=== PATIENT | male | born 1935 | race Caucasian/White ===

== ENCOUNTER → 2016-10-04 | Outpatient (CLI) | payer MEDICARE, OTHER ==
[~2016-10-04] MED LIST: ALPR-475 PO; ASPI-515 PO; ENAL5TAB34 PO; FLUT1DIS3 INH; FURO-93 PO; GABA100C8 PO; HYDR-3144 PO; POTA20TA6 PO; PRED5TAB PO; TOCI80VI IVPB
== END | disposition home or self-care (01) ==
LOC: CFH 15:05
PROVIDERS: ATTEND Internal Medicine Cardiovascular Disease
DX: I34.0 Nonrheumatic mitral (valve) insufficiency (principal); I35.0 Nonrheumatic aortic (valve) stenosis; I35.1 Nonrheumatic aortic (valve) insufficiency; I34.8 Other nonrheumatic mitral valve disorders
CPT/HCPCS: 93306

== ENCOUNTER → 2017-01-26 | Outpatient (CLI) | payer MEDICARE, OTHER ==
[~2017-01-26] MED LIST changes: +CARVEDILOL PO; +GABA-826 PO; -GABA100C8 PO; +TAMS-11 PO; +TRAZ100T15 PO
[2017-01-26 11:06] LABS: ASPARTATE AMINO TRANSFERASE 12 U/L (15-37); BLOOD UREA NITROGEN 23 mg/dL (7-18)
== END | disposition home or self-care (01) ==
LOC: STAR 10:00
PROVIDERS: ATTEND Orthopaedic Surgery
DX: Z01.818 Encounter for other preprocedural examination (principal); R94.31 Abnormal electrocardiogram [ECG] [EKG]; M20.42 Other hammer toe(s) (acquired), left foot
CPT/HCPCS: 36415; 80053; 93005

== ENCOUNTER 2017-02-10 08:16 | Day surgery (SDC) | payer MEDICARE, OTHER ==
[~2017-02-10] VITALS: Ht 170.2 cm; Wt 86.4 kg
[2017-02-10] MEDS ORDERED: LACTATED RINGERS 1,000 ML IV SCH (08:57)
[2017-02-10 09:00] VITALS: BP 160/73
[2017-02-10] MEDS ORDERED: CARVEDILOL PO (09:00)
[2017-02-10] MEDS ORDERED: FENTANYL PF 100 MCG/2ML ONE ×2 (10:00→12:36)
[2017-02-10] MEDS ORDERED: ROPIvacaine/PF 0.5%, 30 ML ONE (10:03)
[2017-02-10] MEDS ORDERED: ONDANSETRON 2MG/ML, 2ML ONE (10:27)
[2017-02-10] MEDS ORDERED: DEXAMETHASONE 4 MG/ML, 5ML ONE (10:27)
[2017-02-10] MEDS ORDERED: PROPOFOL 10 MG/ML, 20ML ONE (10:27)
[2017-02-10] MEDS ORDERED: EPHEDRINE 50 MG/ML, 1ML ONE (10:27)
[2017-02-10] MEDS ORDERED: CEFAZOLIN 1,000 MG ONE (10:27)
[2017-02-10] MEDS ORDERED: hydrALAzine 20 MG/ML, 1ML ONE ×2 (11:33→12:22)
[2017-02-10] MEDS: hydrALAzine 20 MG/ML, 1ML IV PRN ×2 (11:35→12:32)
[2017-02-10] MEDS ORDERED: PROMETHAZINE 25 MG/ML, 1ML IV PRN (12:00)
[2017-02-10] MEDS ORDERED: OXYcodone 5 MG/5 ML ORAL.SOL UDC PO PRN (12:00)
[2017-02-10] MEDS ORDERED: ACETAMINOPHEN 325 MG TABLET PO PRN (12:00)
[2017-02-10] MEDS ORDERED: OXYcodone 5 MG/5 ML ORAL.SOL UDC ONE (12:36)
[2017-02-10] MEDS ORDERED: ACETAMINOPHEN 650 MG/20.3 ML UDC ONE (12:36)
[2017-02-10] MEDS: FENTANYL PF 100 MCG/2ML IV PRN ×2 (12:38→12:51)
== END 2017-02-10 14:30 ==
LOC: OUT 08:16
PROVIDERS: ATTEND Orthopaedic Surgery
DX: M77.42 Metatarsalgia, left foot (principal); M24.575 Contracture, left foot; M20.42 Other hammer toe(s) (acquired), left foot
CPT/HCPCS: 28234; 28285; C1713; J0360; J0690; J1100; J2405; J2704; J2795; J3010; J7120

== ENCOUNTER 2017-02-16 09:46 | Day surgery (SDC) | payer MEDICARE, OTHER ==
[2017-02-08 10:26] VITALS: BP 122/60
[~2017-02-16] VITALS: Ht 170.2 cm; Wt 83.0 kg
[~2017-02-16 09:46] MED LIST changes: +BUPIVACAINE/PF 0.5% ONE; +EPINEPHRINE 1 MG/ML, 1ML ONE; +LIDOCAINE/PF 1%, 30ML ONE
[2017-02-16] MEDS ORDERED: LACTATED RINGERS 1,000 ML IV SCH (10:14)
[2017-02-16 10:15] VITALS: BP 122/60
[2017-02-16] MEDS ORDERED: MIDAZOLAM 1 MG/ML, 2ML ONE (10:34)
[2017-02-16] MEDS ORDERED: FENTANYL PF 100 MCG/2ML ONE (10:34)
[2017-02-16] MEDS ORDERED: HYDROcodone/APAP 10/325 MG TABLET PO PRN (11:00)
[2017-02-16] MEDS ORDERED: SUCCINYLCHOLINE 20 MG/ML, 10ML ONE (11:12)
[2017-02-16] MEDS ORDERED: PROPOFOL 10 MG/ML, 20ML ONE (11:12)
[2017-02-16] MEDS ORDERED: CEFAZOLIN 1,000 MG ONE (11:12)
[2017-02-16] MEDS ORDERED: DEXAMETHASONE 4 MG/ML, 5ML ONE (11:12)
[2017-02-16] MEDS ORDERED: EPHEDRINE 50 MG/ML, 1ML ONE (11:12)
[2017-02-16] MEDS ORDERED: ONDANSETRON 2MG/ML, 2ML ONE (11:12)
[2017-02-16] MEDS ORDERED: GLYCOPYRROLATE 0.2MG/1ML ONE (11:12)
[2017-02-16] MEDS ORDERED: BUPIVACAINE/PF-EPI 0.5% 1:200K INFIL ONE (11:38)
[2017-02-16] MEDS ORDERED: OXYcodone 5 MG/5 ML ORAL.SOL UDC PO PRN (12:00)
[2017-02-16] MEDS ORDERED: LABETALOL 5MG/ML, 20ML IV PRN (12:00)
[2017-02-16] MEDS ORDERED: ACETAMINOPHEN 325 MG TABLET PO PRN (12:00)
[2017-02-16] MEDS ORDERED: HYDROmorphone 1 MG/ML, 1ML IV PRN (12:00)
[2017-02-16] MEDS ORDERED: ALBUTEROL/IPRATROPIUM 2.5MG/0.5MG, 3 ML NPPB PRN (12:00)
[2017-02-16] MEDS ORDERED: FENTANYL PF 100 MCG/2ML IV PRN (12:00)
[2017-02-16] MEDS ORDERED: hydrALAzine 20 MG/ML, 1ML IV PRN (12:00)
[2017-02-16] MEDS ORDERED: MIDAZOLAM 1 MG/ML, 2ML IV PRN (12:00)
[2017-02-16] MEDS ORDERED: ONDANSETRON 2MG/ML, 2ML IVPush PRN (12:00)
[2017-02-16] MEDS ORDERED: PROMETHAZINE 25 MG/ML, 1ML IV PRN (12:00)
[2017-02-16] MEDS ORDERED: MEPERIDINE/PF 25MG/0.5ML IVPush PRN (12:00)
[2017-02-16] MEDS ORDERED: ACETAMINOPHEN 650 MG/20.3 ML UDC ONE (13:38)
[2017-02-16] MEDS ORDERED: OXYcodone 5 MG/5 ML ORAL.SOL UDC ONE (13:39)
[2017-02-16] MEDS ORDERED: TRAZODONE 100MG TABLET PO SCH (21:00)
[2017-02-16] MEDS ORDERED: TEMPLATE NON-FORMULARY MED. (Fluticasone/Salmeterol** (Advair 250-50 Diskus**) 1 PUFF) INH SCH (21:00)
[2017-02-17] MEDS ORDERED: ASPIRIN 81 MG TABLET EC PO SCH (09:00)
[2017-02-17] MEDS ORDERED: TAMSULOSIN 0.4 MG CAP.ER.24H PO SCH (09:00)
[2017-02-17] MEDS ORDERED: ENALAPRIL 5MG TABLET PO SCH (09:00)
== END 2017-02-16 15:15 ==
LOC: OUT 09:46
PROVIDERS: ATTEND Orthopaedic Surgery
DX: S46.112A Strain of muscle, fascia and tendon of long head of biceps, left arm, initial encounter (principal); S43.432A Superior glenoid labrum lesion of left shoulder, initial encounter; M75.42 Impingement syndrome of left shoulder; M19.012 Primary osteoarthritis, left shoulder; M94.212 Chondromalacia, left shoulder; M65.812 Other synovitis and tenosynovitis, left shoulder; I10 Essential (primary) hypertension; J44.9 Chronic obstructive pulmonary disease, unspecified; X58.XXXA Exposure to other specified factors, initial encounter; Y93.89 Activity, other specified; Y92.89 Other specified places as the place of occurrence of the external cause; Y99.8 Other external cause status; Z87.39 Personal history of other diseases of the musculoskeletal system and connective tissue
CPT/HCPCS: 29822; 29824; 29826; 29827; 29828; C1713; J0171; J0330; J0690; J1100; J2250; J2405; J2704; J3010; J3490; J7120

== ENCOUNTER → 2017-10-25 | Outpatient (CLI) | payer MEDICARE, OTHER ==
[~2017-10-25] MED LIST changes: -BUPIVACAINE/PF 0.5% ONE; -ENAL5TAB34 PO; +ENAL5TAB70 PO; -EPINEPHRINE 1 MG/ML, 1ML ONE; -HYDR-3144 PO; +HYDR-3245 PO; -LIDOCAINE/PF 1%, 30ML ONE
== END | disposition home or self-care (01) ==
LOC: CVU 08:12
PROVIDERS: ATTEND Internal Medicine Cardiovascular Disease
DX: I70.0 Atherosclerosis of aorta (principal); I10 Essential (primary) hypertension; N28.9 Disorder of kidney and ureter, unspecified
CPT/HCPCS: 93975

== ENCOUNTER → 2018-03-29 | Outpatient (CLI) | payer MEDICARE, OTHER ==
[~2018-03-29] MED LIST changes: +TRAZ-137 PO; -TRAZ100T15 PO
== END | disposition home or self-care (01) ==
LOC: CFH 08:09
PROVIDERS: ATTEND Internal Medicine Cardiovascular Disease
DX: I08.0 Rheumatic disorders of both mitral and aortic valves (principal); I11.9 Hypertensive heart disease without heart failure; I42.9 Cardiomyopathy, unspecified; I25.2 Old myocardial infarction; E11.9 Type 2 diabetes mellitus without complications
CPT/HCPCS: 93306

== ENCOUNTER 2018-07-11 11:14 | Emergency (ER) | payer MEDICARE, OTHER ==
[~2018-07-11] VITALS: Ht 170.2 cm; Wt 87.0 kg
--- NOTE | 2018-07-11 11:23 | NUR ---
PT. ARRIVES FROM [facility] WHERE HE WAS RECEIVING AN EPIDURAL FOR CHRONIC NECK PAIN. PT. AWOKE, STATED BY HIM, FEELING DISCONNECTED FROM HIS BODY, NOT ALLOWING HIM TO MOVE HIS HANDS, FEET OR BODY. PT. REPORTS THAT HE FEELS BACK TO NORMAL AT THIS TIME. CMS CHECKS ARE INTACT. PULSES ARE +2 THROUGHOUT. PT.'S 12 LEAD EKG WAS DONE. IV ACCESS WAS ESTABLISHED AT THE FACILITY, [facility]. PT.'S PUPILS ARE EVERARDO. SPEECH IS CLEAR. CP MONITOR IS IN PLACE. PT.'S 12 LEAD EKG WAS DONE. REPORT TO BRIGITTE LERNER.
[2018-07-11 11:51] LABS: BASOPHILS # (AUTO) 0.01 x10^3/uL (0-0.1); BASOPHILS % (AUTO) 0 % (0-1); EOSINOPHILS # (AUTO) 0.09 x10^3/uL (0-0.4); EOSINOPHILS % (AUTO) 1 % (1-7); LYMPHOCYTES % (AUTO) 10 % (22-44); MD NO; MEAN CORPUSCULAR HEMOGLOBIN 33.1 pg (27.5-34.5); MEAN CORPUSCULAR HGB CONC 34.2 g/dL (33.2-36.2); MEAN CORPUSCULAR VOLUME 96.6 fL (81-97); MEAN PLATELET VOLUME 8.1 fL (7.4-10.4); MONOCYTES # (AUTO) 0.12 x10^3/uL (0.2-0.8); MONOCYTES % (AUTO) 2 % (2-9); NEUTROPHILS # (AUTO) 5.95 x10^3/uL (1.8-6.8); NEUTROPHILS % (AUTO) 87 % (42-75); PLATELET COUNT 186 x10^3/uL (130-400); RED BLOOD COUNT 4.98 x10^6/uL (4.38-5.82); RED CELL DISTRIBUTION WIDTH 13.4 % (9.4-14.8)
--- NOTE | 2018-07-11 11:57 | NUR ---
pt upright on gurney awake & comfortable, responds approp to staff, NAD, comfort measures provided, call light within reach.
[2018-07-11 12:01] LABS: ALBUMIN 3.5 g/dL (3.4-5.0); CALCIUM 8.7 mg/dL (8.5-10.1); CHLORIDE 107 mmol/L (98-107); CREATININE 1.25 mg/dL (0.7-1.3)
[2018-07-11 12:23] LABS: ANION GAP 3 mmol/L (5-15)
--- NOTE | 2018-07-11 13:07 | NUR ---
pt upright on gurney with eyes closed, responds approp to staff, NAD, comfort measures provided, call light within reach.
--- NOTE | 2018-07-11 13:34 | NUR ---
LUNCH RN: PT TO MRI AFTER MRI SCREENING FORM BEING COMPLETED. MRI INFORMED THAT PT HAS HARDWARE IN LEFT FOOT.
--- NOTE | 2018-07-11 14:58 | NUR ---
pt remains upright on gurney awake & comfortable, responds approp to staff, NAD, comfort measures provided, visitors at BS, call light within reach.
--- NOTE | 2018-07-11 16:05 | NUR ---
pt laying on gurney awake & comfortable, responds approp to staff, NAD, comfort measures provided, visitors at BS, call light within reach.
--- NOTE | 2018-07-11 16:31 | NUR ---
ERP at BS
[2018-07-11 17:09] VITALS: BP 149/94
--- NOTE | 2018-07-11 17:09 | NUR ---
Patient given discharge instructions and they have confirmed that they understand the instructions. Patient ambulatory with steady gait.
== END 2018-07-11 17:11 | disposition home or self-care (01) ==
LOC: ED 14:16
DX: R55 Syncope and collapse (principal); G97.1 Other reaction to spinal and lumbar puncture
CPT/HCPCS: 36415; 70450; 70551; 72141; 80048; 82040; 85025; 93005; 99284

== ENCOUNTER → 2020-10-01 | Outpatient (CLI) | payer MEDICARE, OTHER ==
[~2020-10-01] MED LIST changes: -ALPR-475 PO; +ALPR0.5T7 PO; -ASPI-515 PO; +ASPI-963 PO; -HYDR-3245 PO; +HYDR1TAB53 PO; -TRAZ-137 PO; +TRAZ-175 PO
== END | disposition home or self-care (01) ==
LOC: CFH 11:47
PROVIDERS: ATTEND Internal Medicine Cardiovascular Disease
DX: I08.3 Combined rheumatic disorders of mitral, aortic and tricuspid valves (principal); I42.0 Dilated cardiomyopathy; I48.91 Unspecified atrial fibrillation; I49.3 Ventricular premature depolarization; R60.9 Edema, unspecified; I10 Essential (primary) hypertension; E78.5 Hyperlipidemia, unspecified
CPT/HCPCS: 93306; 93356

== ENCOUNTER → 2020-11-27 | Outpatient (CLI) | payer MEDICARE, OTHER | END | disposition home or self-care (01) | LOC: RAD 08:37 | PROVIDERS: ATTEND Family Medicine | DX: K76.0 Fatty (change of) liver, not elsewhere classified (principal); K80.20 Calculus of gallbladder without cholecystitis without obstruction; K59.00 Constipation, unspecified | CPT/HCPCS: 76700 ==

== ENCOUNTER 2020-12-23 13:44 | Day surgery (SDC) | payer MEDICARE, OTHER ==
[~2020-12-23] VITALS: Ht 170.2 cm; Wt 91.8 kg
[~2020-12-23 13:44] MED LIST changes: +BUPIVACAINE/PF 0.5% ONE
[2020-12-23] MEDS ORDERED: FENTANYL PF 250 MCG/5ML ONE (14:18)
[2020-12-23] MEDS ORDERED: NEOSTIGMINE 1 MG/ML, 10ML ONE (14:19)
[2020-12-23] MEDS ORDERED: CEFOTETAN 2 GM ONE (14:19)
[2020-12-23] MEDS ORDERED: PROPOFOL 10 MG/ML, 20ML ONE (14:19)
[2020-12-23] MEDS ORDERED: ROCURONIUM 10MG/ML,5ML ONE (14:19)
[2020-12-23] MEDS ORDERED: GLYCOPYRROLATE 0.2MG/1ML, 5ML ONE (14:19)
[2020-12-23] MEDS ORDERED: ELIQUIS PO (14:25)
[2020-12-23 14:26] VITALS: BP 134/73
[2020-12-23] MEDS ORDERED: INDOCYANINE GREEN 25 MG VIAL IV ONE (14:30)
[2020-12-23] MEDS ORDERED: LACTATED RINGERS 1,000 ML IV SCH (14:30)
[2020-12-23] MEDS ORDERED: CHLORHEXIDINE 15 ML UDC PO ONE (14:30)
[2020-12-23] MEDS ORDERED: INDOCYANINE GREEN 25 MG VIAL ONE (14:35)
[2020-12-23 14:54] LABS: ALANINE AMINOTRANSFERASE 24 U/L (12-78); ANION GAP 6 mmol/L (5-15); CALCIUM 8.6 mg/dL (8.5-10.1); CHLORIDE 109 mmol/L (98-107)
[2020-12-23 14:56] LABS: ALKALINE PHOSPHATASE 43 U/L (45-117); BILIRUBIN,TOTAL 1.9 mg/dL (0.2-1.0); TOTAL PROTEIN 7.1 g/dL (6.4-8.2)
[2020-12-23] MEDS ORDERED: OXYC5TAB98 PO (14:58)
[2020-12-23] MEDS ORDERED: MEPERIDINE/PF 25MG/0.5ML IVPush PRN (15:30)
[2020-12-23] MEDS ORDERED: HYDROmorphone 1 MG/ML, 1ML INJ IVPush PRN (15:30)
[2020-12-23] MEDS ORDERED: FENTANYL PF 100 MCG/2ML IV PRN (15:30)
[2020-12-23] MEDS ORDERED: ACETAMINOPHEN 325 MG TABLET PO PRN (15:30)
[2020-12-23] MEDS ORDERED: LABETALOL 5MG/ML, 20ML IV PRN (15:30)
[2020-12-23] MEDS ORDERED: ONDANSETRON 2MG/ML, 2ML IVPush PRN (15:30)
[2020-12-23] MEDS ORDERED: hydrALAzine 20 MG/ML, 1ML IV PRN (15:30)
[2020-12-23] MEDS ORDERED: OXYcodone 5 MG/5 ML ORAL.SOL UDC PO PRN (15:30)
[2020-12-23] MEDS ORDERED: morphine SULFATE 10 MG/ML, 1ML IVPush PRN (15:30)
[2020-12-23] MEDS ORDERED: EPINEPHRINE 1 MG/ML, 1ML INFIL ONE (15:51)
[2020-12-23] MEDS ORDERED: hydrALAzine 20 MG/ML, 1ML ONE (16:33)
[2020-12-23] MEDS ORDERED: ACETAMINOPHEN 650 MG/20.3 ML UDC ONE (16:39)
[2020-12-23] MEDS ORDERED: OXYcodone 5 MG/5 ML ORAL.SOL UDC ONE (16:59)
[2020-12-23] MEDS ORDERED: FENTANYL PF 100 MCG/2ML ONE (17:14)
== END 2020-12-23 19:30 | disposition home or self-care (01) ==
LOC: OR 13:44
PROVIDERS: ATTEND Surgery
DX: K80.64 Calculus of gallbladder and bile duct with chronic cholecystitis without obstruction (principal); K82.8 Other specified diseases of gallbladder; N40.0 Benign prostatic hyperplasia without lower urinary tract symptoms; I11.0 Hypertensive heart disease with heart failure; I50.9 Heart failure, unspecified; I42.9 Cardiomyopathy, unspecified; I48.0 Paroxysmal atrial fibrillation; E11.9 Type 2 diabetes mellitus without complications; M06.9 Rheumatoid arthritis, unspecified; G47.30 Sleep apnea, unspecified; F12.90 Cannabis use, unspecified, uncomplicated; Z20.822 Contact with and (suspected) exposure to COVID-19; Z79.01 Long term (current) use of anticoagulants; Z79.891 Long term (current) use of opiate analgesic; Z79.899 Other long term (current) drug therapy; Z98.890 Other specified postprocedural states
CPT/HCPCS: 36415; 47563; 74300; 80053; 82962; 87635; 88304; 93005; J0171; J0360; J1170; J2704; J2710; J3010; J7120

== ENCOUNTER → 2021-02-03 | Outpatient (CLI) | payer MEDICARE, OTHER ==
[~2021-02-03] MED LIST changes: -BUPIVACAINE/PF 0.5% ONE; +ELIQUIS PO; +OXYC5TAB98 PO
== END | disposition home or self-care (01) ==
LOC: CFH 06:44
PROVIDERS: ATTEND Internal Medicine Cardiovascular Disease
DX: I08.8 Other rheumatic multiple valve diseases (principal); I25.89 Other forms of chronic ischemic heart disease; I48.91 Unspecified atrial fibrillation; I25.2 Old myocardial infarction; E11.9 Type 2 diabetes mellitus without complications; I11.9 Hypertensive heart disease without heart failure
CPT/HCPCS: 78452; 93017; 93306; A9502